=== PATIENT | female | born 1985 ===

== ENCOUNTER 2017-03-18 21:45 | Observation (INO) | payer BC ==
[2017-03-18 22:54] VITALS: BMI 28.3
[2017-03-18 23:59] LABS: BASO # 0.01 K/mm3 (0.0-2.0); BASO % 0.1 % (0.0-3.0); EOS # 0.1 (0.0-0.7); EOS % 0.5 % (1.5-5.0); GRAN # 6.89 (1.4-6.5); GRAN % 71.7 % (50.0-68.0); HEMATOCRIT 34.7 % (36.0-48.0); LYMPH # 2.1 (1.2-3.4); LYMPH % 21.3 % (22.0-35.0); MEAN CELL VOLUME 86.3 fl (80.0-105.0); MEAN CORPUSCULAR HEMOGLOBIN 28.9 pg (25.0-35.0); MEAN CORPUSCULAR HGB CONC 33.4 g/dl (31.0-37.0); MEAN PLATELET VOLUME 8.2 fl (7.0-11.0); MONO # 0.6 (0.1-0.6); MONO % 6.4 % (1.0-6.0); RED CELL DISTRIBUTION WIDTH 12.6 % (11.5-14.5); WHITE BLOOD COUNT 9.6 10^3/ul (4.5-11.0)
--- NOTE | 2017-03-19 00:15 | ED PDOC ---
Arrival/HPI <Anton Noble - Last Filed: 03/19/17 03:08> - General Historian: Patient, Spouse EM Caveat: Acuity of Condition - History of Present Illness Front/Back of Body, Lg (Color): 1 - right upper quadrant abdominal pain 2 - radiation of pain to RLQ Time/Duration: Other (3 days) Symptom Onset: Gradual Symptom Course: Unchanged Quality: Fullness, Other (sharp) Severity Level: 7 Activities at Onset: Light Context: Standing <CHANDRA PETTIT - Last Filed: 03/19/17 03:27> - General Chief Complaint: Abdominal Pain Time Seen by Provider: 03/18/17 21:47 - History of Present Illness Narrative History of Present Illness (Text): 32 years old female with hx of constipation, frequent UTIs, presents for RUQ abdominal pain x past 3 days. Pt states that it started while she was walking, describes it as sharp, intermittent, lasting few secs, occurs every few hours. Pt states that the pain radiates to the right lower abdominal quadrant and right pelvic area. Coughing, straightening up, deep breathing exacerbates the pain. Nothing makes it better. OTC gas relief medication and naproxen helped minimally. Pt states that she initially thought that it was just gas, pt has been passing excessive flatus and had nonbloody BM this AM. Pt denies nausea, vomiting, fever, chills, cough, sob, cp, palpitations, back pain, not associated with eating, urinary symptoms, melena, brbpr. 03/19/17 00:16 03/19/17 00:23 (CHANDRA PETTIT) Associated Symptoms (Text): Associated with excessive flatus. 03/19/17 00:26 (CHANDRA PETTIT) Past Medical History - Provider Review Nursing Documentation Reviewed: Yes - Infectious Disease Hx of Infectious Diseases: None - Genitourinary/Gynecological Other/Comment: Jarad breast cyst - Psychiatric Hx Substance Use: No - Surgical History Other/Comment: lumpectomy - Anesthesia Hx Anesthesia: Yes Hx Anesthesia Reactions: No Hx Malignant Hyperthermia: No <CHANDRA PETTIT - Last Filed: 03/19/17 03:27> Family/Social History - Physician Review Nursing Documentation Reviewed: Yes Family/Social History: Diabetes (Father), Hypertension (Father) Smoking Status: Never Smoked Hx Alcohol Use: No Hx Substance Use: No <CHANDRA PETTIT - Last Filed: 03/19/17 03:27> Allergies/Home Meds <Anton Noble - Last Filed: 03/19/17 03:08> <CHANDRA PETTIT - Last Filed: 03/19/17 03:27> Allergies/Adverse Reactions: Allergies shellfish derived Allergy (Verified 03/18/17 22:54) RASH Home Medications: Home Meds Medication Instructions Recorded Confirmed No Known Home Med 03/18/17 03/18/17 Review of Systems - Physician Review All systems were reviewed & negative as marked: Yes - Review of Systems Constitutional: absent: Fatigue, Fevers Eyes: absent: Vision Changes ENT: absent: Tinnitus, Sore Throat Respiratory: absent: SOB, Cough Cardiovascular: absent: Chest Pain, Palpitations, Syncope Gastrointestinal: Abdominal Pain, Constipation. absent: Stool Changes, Diarrhea , Nausea, Vomiting, Appetite Changes, Hematochezia, Hematemesis, Food Intolerance Genitourinary Female: Frequency. absent: Dysuria, Hematuria Musculoskeletal: absent: Back Pain Skin: absent: Rash, Skin Lesions Neurological: absent: Headache, Focal Weakness Psychiatric: Anxiety <CHANDRA PETTIT - Last Filed: 03/19/17 03:27> Physical Exam Vital Signs Reviewed: Yes Temperature: Afebrile Blood Pressure: Normal Pulse: Tachycardic Respiratory Rate: Normal Appearance: Positive for: Uncomfortable Pain Distress: Mild Mental Status: Positive for: Alert and Oriented X 3 - Systems Exam Head: Present: Atraumatic, Normocephalic Pupils: Present: PERRL Extroacular Muscles: Present: EOMI Conjunctiva: Present: Normal Mouth: Present: Moist Mucous Membranes. No: Dry Pharnyx: Present: Normal. No: ERYTHEMA Neck: Present: Normal Range of Motion Respiratory/Chest: Present: Clear to Auscultation, Good Air Exchange Cardiovascular: Present: Normal S1, S2, Tachycardic. No: Murmurs Abdomen: Present: Tenderness, Normal Bowel Sounds. No: Rebound, Guarding Back: Present: Normal Inspection. No: CVA Tenderness, Paraspinal Tenderness Upper Extremity: Present: Normal Inspection. No: Edema Lower Extremity: Present: Normal Inspection, NORMAL PULSES. No: CALF TENDERNESS Neurological: Present: GCS=15 Skin: Present: Warm, Dry Psychiatric: Present: Alert, Oriented x 3 <CHANDRA PETTIT - Last Filed: 03/19/17 03:27> Vital Signs Temp Pulse Resp BP Pulse Ox 03/18/17 23:40 98.5 F 114 H 17 116/69 99 Medical Decision Making <Anton Noble - Last Filed: 03/19/17 03:08> - Transfer of Care Patient signed out to Dr:: Chioma Other: Admit to Med-Surg for Observation <CHANDRA PETTIT - Last Filed: 03/19/17 03:27> ED Course and Treatment: Patient Seen With Resident: In agreement with resident note which contains more details about the patient. Patient was seen and evaluated with resident. Came up with plan and treatment together. (Anton Noble) 03/19/17 00:33 32 years old female presents for right sided abdominal pain: - CBC, CMP, lipase, Abdominal US - CT abd with IV contrast - Reassess and disposition 03/19/17 03:[address] Pt signed out [address] Bedolla and the director biomedical engineering. (CHANDRA PETTIT) - Lab Interpretations Lab Results: 03/18/17 23:40 03/18/17 23:40 Lab Results 03/18/17 23:40: Lipase 57 03/18/17 23:40: Sodium 140, Potassium 3.9, Chloride 102, Carbon Dioxide 27, Anion Gap 15, BUN 11, Creatinine 0.9, Est GFR ( Amer) > 60, Est GFR (Non- Af Amer) > 60, Random Glucose 124 H, Calcium 9.5, Total Bilirubin 0.4, AST 27, ALT 58 H, Alkaline Phosphatase 79, Total Protein 8.1, Albumin 4.3, Globulin 3.7 , Albumin/Globulin Ratio 1.2 03/18/17 23:40: WBC 9.6, RBC 4.02, Hgb 11.6 L, Hct 34.7 L, MCV 86.3, MCH 28.9, MCHC 33.4, RDW 12.6, Plt Count 446, MPV 8.2, Gran % 71.7 H, Lymph % (Auto) 21.3 L, [place] % (Auto) 6.4 H, Eos % (Auto) 0.5 L, Baso % (Auto) 0.1, Gran # 6.89 H, Lymph # 2.1, [place] # 0.6, Eos # 0.1, Baso # 0.01 03/18/17 23:30: Urine Color Yellow, Urine Appearance Sl cloudy, Urine pH 6.0, Ur Specific [place] 1.020, Urine Protein Negative, Urine Glucose (UA) Negative, Urine Ketones Negative, Urine Blood Trace-intact H, Urine Nitrate Negative, Urine Bilirubin Negative, Urine Urobilinogen 0.2, Ur Leukocyte Esterase Moderate H, Urine RBC 0 - 2, Urine WBC 5 - 10, Ur Epithelial Cells 1 - 3, Urine Bacteria Trace, Urine HCG, Qual Negative - RAD Interpretation Narrative RAD Interpretations (Text): 03/19/17 01:07 Abd US: Hepatomegaly. Limited evaluation of the pancreas, secondary to overlying bowel gas. No cholecystitis. 03/19/17 01:59 CT abd/pelvis with IV contrast: Contracted gallbladder with mild gallbladder wall prominence and pericholecystic haziness. Distended urinary bladder measuring 10.6 cm. There is nonspecific stool-like appearance to be small bowel loops with some fluid-filled bowel loops. There is infiltration of the mesentery of the lower abdomen. Correlation with clinical data is recommended if enteritis versus ileus with slow transit is clinically suspected. (CHANDRA PETTIT) Radiology Orders: 03/18/17 23:37 ABDOMEN COMPLETE [US] Stat 03/18/17 23:43 ABDOMEN & PELVIS [ABD & PELVIS IV CONTRAST ONLY] [CT] Stat - Medication Orders Current Medication Orders: Metronidazole (Flagyl) 500 mg in 100 mls @ 100 mls/hr IVPB Q8 IRENE PRN Reason: Protocol Sodium Chloride (Sodium Chloride 0.9%) 1,000 mls @ 125 mls/hr IV .Q8H IRENE Morphine Sulfate (Morphine) 2 mg IVP Q6 PRN PRN Reason: Pain, severe (8-10) Nitrofurantoin Macrocrystals (Macrobid) 100 mg PO Q12 IRENE Ondansetron HCl (Zofran Inj) 4 mg IVP Q6 PRN PRN Reason: Nausea/Vomiting Pantoprazole Sodium (Protonix Inj) 40 mg IVP DAILY IRENE Discontinued Medications Metronidazole (Flagyl) 500 mg in 100 mls @ 100 mls/hr IVPB STAT STA PRN Reason: Protocol Stop: 03/19/17 03:15 Last Admin: 03/19/17 02:35 Dose: 100 mls/hr Ceftriaxone Sodium (Rocephin 1 Gram Ivpb) 1 gm in 100 mls @ 200 mls/hr IVPB STAT STA PRN Reason: Protocol Stop: 03/19/17 02:44 - PA / [employer]IST MANAGER / Resident Statement / has reviewed & agrees with the documentation as recorded. / has examined the patient and agrees with the treatment plan. <Anton Noble - Last Filed: 03/19/17 03:08> Disposition/Present on Arrival <Anton Noble - Last Filed: 03/19/17 03:08> - Present on Arrival Any Indicators Present on Arrival: No History of DVT/PE: No History of Uncontrolled Diabetes: No Urinary Catheter: No History of Decub. Ulcer: No History Surgical Site Infection Following: None - Disposition Have Diagnosis and Disposition been Completed?: Yes Disposition Time: 02:20 Patient Plan: Admission, Observation, Other (Med-Surg) <CHANDRA PETTIT - Last Filed: 03/19/17 03:27> - Disposition Diagnosis: Abdominal pain Disposition: HOSPITALIZED Patient Problems: Current Active Problems Problem Status Onset Abdominal pain Acute Condition: FAIR Referrals: PCP,NO [Primary Care Provider] - Follow up with primary Forms: [employer] ([place])
[2017-03-19 00:16] LABS: ALB/GLOB RATIO 1.2 (1.1-1.8); ALKALINE PHOSPHATASE 79 U/L (38-126); ALT/SGPT 58 U/L (7-56); AST/SGOT 27 U/L (14-36); BILIRUBIN,TOTAL 0.4 mg/dL (0.2-1.3); BLOOD UREA NITROGEN 11 mg/dL (7-21); CALCIUM 9.5 mg/dL (8.4-10.5); CARBON DIOXIDE 27 mmol/L (21-33); CHLORIDE 102 mmol/L (95-110); GFR AFRICAN-AMERICAN > 60; GLUCOSE,RANDOM 124 mg/dL (70-110); POTASSIUM 3.9 mmol/L (3.6-5.0); SODIUM 140 mmol/L (132-148); TOTAL PROTEIN 8.1 g/dL (5.8-8.3)
[2017-03-19 00:28] LABS: URINE BILIRUBIN NEGATIVE (NEGATIVE); URINE BLOOD TRACE-INTACT (NEGATIVE); URINE GLUCOSE (UA) NEGATIVE (NEGATIVE); URINE KETONE NEGATIVE (NEGATIVE); URINE LEUKOCYTE ESTERASE MODERATE Leu/uL (NEGATIVE); URINE PROTEIN NEGATIVE mg/dL (<30 mg/dL); URINE UROBILINOGEN 0.2 E.U./dL (<1 E.U./dL)
[2017-03-19 00:34] LABS: URINE APPEARANCE SL CLOUDY (CLEAR); URINE COLOR YELLOW (YELLOW)
[2017-03-19 00:43] LABS: URINE BACTERIA TRACE (NEG); URINE RBC 0 - 2 /hpf (0-2)
--- NOTE | 2017-03-19 01:05 | US ---
EXAM: US Abdomen Complete CLINICAL HISTORY: 32 years old, female; Pain; Abdominal pain; Generalized; Additional info: Ruq pain; R/O gallbladder etiology TECHNIQUE: Real-time ultrasound of the abdomen (complete) with image documentation. COMPARISON: No relevant prior studies available. FINDINGS: Liver: Increased in echogenicity and size measuring 19 cm in longitudinal dimension. No intrahepatic bile duct dilation. Gallbladder: No acute findings. No gallstones. Common bile duct: No stones. No dilation, measuring 4.3 mm. Pancreas: Visualization of the pancreas is limited by overlying bowel gas. Right kidney: Unremarkable in echogenicity and size measuring 11.5 x 4.7 x 4.7 cm. No hydronephrosis. Left Kidney: Unremarkable in echogenicity and size measuring 11 x 5.8 x 5.2 cm. No hydronephrosis. Spleen: Unremarkable in echogenicity and size, measuring 7 cm in greatest dimension. Aorta: Unremarkable. Inferior vena cava: patent. IMPRESSION: Hepatomegaly. Limited evaluation of the pancreas, secondary to overlying bowel gas. Otherwise, unremarkable sonographic evaluation of the abdomen, as detailed above.
[2017-03-19] MEDS ORDERED: Iohexol 350 MG/100 ML VIAL ONE (01:12)
--- NOTE | 2017-03-19 01:50 | CT ---
EXAM: CT Abdomen and Pelvis With Intravenous Contrast CLINICAL HISTORY: 32 years old, female; Pain; Abdominal pain; Flank; Right lower quadrant (rlq); Additional info: Rlq/pelvic pain; Rule out appendicitis TECHNIQUE: Axial computed tomography images of the abdomen and pelvis with intravenous contrast. All CT scans at this facility use one or more dose reduction techniques, viz.: automated exposure control; ma/kV adjustment per patient size (including targeted exams where dose is matched to indication; i.e. head); or iterative reconstruction technique. 773 m are submitted. Coronal and sagittal reformatted images were created and reviewed. CONTRAST: 96 mL of OMNI 350 administered intravenously. COMPARISON: US - ABDOMEN COMPLETE 2017-03-19 00:49 FINDINGS: Lower thorax: Bibasilar nonspecific infiltrates are present, consistent with atelectasis or pneumonia. ABDOMEN: Liver: Mild fatty infiltration of the liver. Gallbladder and bile ducts: Contracted gallbladder with mild gallbladder wall prominence and pericholecystic haziness. Pancreas: Unremarkable. No mass. No ductal dilation. Spleen: Unremarkable. No splenomegaly. Adrenals: Unremarkable. No mass. Kidneys and ureters: Unremarkable. No solid mass. No hydronephrosis. Stomach and bowel: There is nonspecific stool-like appearance to be small bowel loops with some fluid-filled bowel loops. There is infiltration of the mesentery of the lower abdomen. Correlation with clinical data is recommended if enteritis versus ileus with slow transit is clinically suspected. No obstruction. Appendix: Normal appendix. PELVIS: Bladder: Distended bladder measuring 10.6 cm Reproductive: Bilateral ovarian follicles. High riding ovaries. Uterus is seen. ABDOMEN and PELVIS: Intraperitoneal space: Unremarkable. No free air. No significant fluid collection. Bones/joints: No acute fracture. No dislocation. Soft tissues: There is a fat-containing umbilical hernia. Vasculature: Pelvic phleboliths. No abdominal aortic aneurysm. Lymph nodes: Subcentimeter mesenteric lymph nodes. Tiny subcentimeter para-aortic lymph nodes. IMPRESSION: 1. Contracted gallbladder with mild gallbladder wall prominence and pericholecystic haziness. 2. Distended bladder measuring 10.6 cm . 3. There is nonspecific stool-like appearance to be small bowel loops with some fluid-filled bowel loops. There is infiltration of the mesentery of the lower abdomen. Correlation with clinical data is recommended if enteritis versus ileus with slow transit is clinically suspected.
[2017-03-19] MEDS ORDERED: cefTRIAXone 1 gm 1 GM/100 ML BAG IVPB STA (02:15)
[2017-03-19] MEDS ORDERED: metroNIDAZOLE IV 500 mg/100 ml 500 MG/100 ML BAG IVPB STA (02:16)
[2017-03-19] MEDS ORDERED: Morphine 2 mg/ml ISec IVP PRN (02:50)
[2017-03-19] MEDS ORDERED: Sodium Chloride 0.9% 1,000 ML IV SCH (03:00)
--- NOTE | 2017-03-19 03:09 | CP.PCM.HP ---
<Ermias Martin - Last Filed: 03/19/17 03:13> History of Present Illness - History of Present Illness History of Present Illness: This is a 32 year old female with no past medical history who comes in complaining of right upper quadrant pain since Friday. The patient describes the pain as sharp in nature and that it comes and goes. The patient reports taking a gas pill but denies any relief in the pain. The patient denies any allieviating or modifying symptoms. The patient does report some constipation in conjunction with the right upper quadrant pain. The patient denies any chest pain, shortness of breath, nausea, vomiting, constipation, diarrhea, changes in vision, lightheadedness, or dizziness, or any other complaints. PMD: Dr. Roy Past medical history: Denies Medications: Multivitamins Allergies: Shellfish Surgeries: Bilateral lumpectomy Social history: Denies alcohol or smoking history. Denies illicit drug use. Present on Admission - Present on Admission Any Indicators Present on Admission: No Review of Systems - Constitutional Constitutional: absent: Anorexia, Chills, Headache, Night Sweats, Snoring - EENT Eyes: absent: Blurred Vision, Discharge, Requires Corrective Lenses, Other Visual Disturbances Ears: absent: Ear Discharge, Disequilibrium, Dizziness Nose/Mouth/Throat: absent: Nasal Congestion, Nasal Trauma, Bleeding Gums, Halitosis - Cardiovascular Cardiovascular: absent: Chest Pain, Edema, Irregular Heart Rhythm, Orthopnea, Palpitations, Paroxysmal Nocturnal Dyspnea - Respiratory Respiratory: absent: Cough, Dyspnea, Hemoptysis, Snoring, Stridor, Pain on Inspiration - Gastrointestinal Gastrointestinal: Abdominal Pain, Constipation. absent: Change in Stool Character, Diarrhea, Dyspepsia, Dysphagia, Excessive Flatus, Heartburn, Melena, Nausea, Vomiting - Musculoskeletal Musculoskeletal: absent: Arthralgias, Myalgias, Neck Pain, Stiffness, Tingling - Integumentary Integumentary: absent: Alopecia, Lesions, Pruritus, Rash, Skin Pain, Swelling, Unusual Bruising - Neurological Neurological: absent: Abnormal Gait, Disequilibrium, Dizziness, Headaches, Loss of Vision, Radicular Pain, Syncope, Tremor, Vertigo, Weakness - Psychiatric Psychiatric: absent: Abnormal Sleep Pattern, Confusion, Depression, Hopelessness , Panic Attacks, Tactile Hallucinations - Endocrine Endocrine: absent: Change in Body Appearance, Excessive Sweating, Polydipsia, Polyphagia, Polyuria - Hematologic/Lymphatic Hematologic: absent: Easy Bleeding, Easy Bruising Past Patient History - Infectious Disease Hx of Infectious Diseases: None - Past Social History Smoking Status: Never Smoked - GENITOURINARY/GYNECOLOGICAL Other/Comment: Jarad breast cyst - PSYCHIATRIC Hx Substance Use: No - SURGICAL HISTORY Other/Comment: lumpectomy - ANESTHESIA Hx Anesthesia: Yes Hx Anesthesia Reactions: No Hx Malignant Hyperthermia: No Meds Allergies/Adverse Reactions: Allergies Allergy/AdvReac Type Severity Reaction Status Date / Time shellfish derived Allergy RASH Verified 03/18/17 22:54 Physical Exam - Head Exam Head Exam: ATRAUMATIC, NORMAL INSPECTION, NORMOCEPHALIC - Eye Exam Eye Exam: EOMI, Normal appearance, PERRL. absent: Periorbital tenderness Pupil Exam: NORMAL ACCOMODATION, PERRL. absent: Irregular, Unequal - ENT Exam ENT Exam: Mucous Membranes Moist, Normal Exam, Normal Oropharynx. absent: TM's Normal Bilaterally - Neck Exam Neck exam: Positive for: Normal Inspection. Negative for: Lymphadenopathy, Meningismus, Thyromegaly - Respiratory Exam Respiratory Exam: Clear to Auscultation Bilateral, NORMAL BREATHING PATTERN. absent: Chest Wall Tenderness, Prolonged Expiratory Phase, Respiratory Distress - Cardiovascular Exam Cardiovascular Exam: REGULAR RHYTHM, +S1, +S2. absent: Gallop, Rubs - GI/Abdominal Exam GI & Abdominal Exam: Normal Bowel Sounds, Soft, Tenderness. absent: Firm, Guarding, Hypoactive Bowel Sounds, Organomegaly - Extremities Exam Extremities exam: Positive for: full ROM, normal inspection. Negative for: joint swelling, pedal edema, tenderness - Back Exam Back exam: NORMAL INSPECTION. absent: CVA tenderness (L), CVA tenderness (R), paraspinal tenderness - Neurological Exam Neurological exam: CN II-XII Intact, Oriented x3 - Psychiatric Exam Psychiatric exam: Normal Affect, Normal Mood - Skin Skin Exam: Dry, Intact, Normal Color, Warm Results - Vital Signs Recent Vital Signs: Last Vital Signs Temp 98.5 F 03/18/17 23:40 Pulse 114 H 03/18/17 23:40 Resp 17 03/18/17 23:40 BP 116/69 03/18/17 23:40 Pulse Ox 99 03/18/17 23:40 - Labs Result Diagrams: 03/18/17 23:40 03/18/17 23:40 Labs: Laboratory Results - last 24 hr 03/18/17 03/18/17 03/18/17 23:30 23:40 23:40 WBC 9.6 RBC 4.02 Hgb 11.6 L Hct 34.7 L MCV 86.3 MCH 28.9 MCHC 33.4 RDW 12.6 Plt Count 446 MPV 8.2 Gran % 71.7 H Lymph % (Auto) 21.3 L [place] % (Auto) 6.4 H Eos % (Auto) 0.5 L Baso % (Auto) 0.1 Gran # 6.89 H Lymph # 2.1 [place] # 0.6 Eos # 0.1 Baso # 0.01 Sodium 140 Potassium 3.9 Chloride 102 Carbon Dioxide 27 Anion Gap 15 BUN 11 Creatinine 0.9 Est GFR ( Amer) > 60 Est GFR (Non-Af Amer) > 60 Random Glucose 124 H Calcium 9.5 Total Bilirubin 0.4 AST 27 ALT 58 H Alkaline Phosphatase 79 Total Protein 8.1 Albumin 4.3 Globulin 3.7 Albumin/Globulin Ratio 1.2 Lipase Urine Color Yellow Urine Appearance Sl cloudy Urine pH 6.0 Ur Specific [place] 1.020 Urine Protein Negative Urine Glucose (UA) Negative Urine Ketones Negative Urine Blood Trace-intact H Urine Nitrate Negative Urine Bilirubin Negative Urine Urobilinogen 0.2 Ur Leukocyte Esterase Moderate H Urine RBC 0 - 2 Urine WBC 5 - 10 Ur Epithelial Cells 1 - 3 Urine Bacteria Trace Urine HCG, Qual Negative 03/18/17 23:40 WBC RBC Hgb Hct MCV MCH MCHC RDW Plt Count MPV Gran % Lymph % (Auto) [place] % (Auto) Eos % (Auto) Baso % (Auto) Gran # Lymph # [place] # Eos # Baso # Sodium Potassium Chloride Carbon Dioxide Anion Gap BUN Creatinine Est GFR ( Amer) Est GFR (Non-Af Amer) Random Glucose Calcium Total Bilirubin AST ALT Alkaline Phosphatase Total Protein Albumin Globulin Albumin/Globulin Ratio Lipase 57 Urine Color Urine Appearance Urine pH Ur Specific [place] Urine Protein Urine Glucose (UA) Urine Ketones Urine Blood Urine Nitrate Urine Bilirubin Urine Urobilinogen Ur Leukocyte Esterase Urine RBC Urine WBC Ur Epithelial Cells Urine Bacteria Urine HCG, Qual Assessment & Plan - Assessment and Plan (Free Text) Assessment: This is a 32 year old female with no past medical history who is being admitted for right upper quadrant pain. Plan: 1.RUQ pain -Abdomen and pelvis ct done in the E.D. showed a contracted gallbladder with mild gallbaldder wall prominence and pericholecystic haziness, distended bladder 10.6cm, and non-specific stool like appearance to be small bowel loops with some fluid filled bowel loops -Surgery consulted. Will f/u with rec's. -GI consulted. Will f/u with rec's. -NPO -IV fluids at 125mls/hr -Morphine 2mg Q6 PRN for pain management 2. UTI -u/a shows moderated luekocyte esterase. Patient asymptomatic -Nitrofurantoin 100mg BID started -Will monitor closely. GI ppx -Protonix DVT ppx -SCD's <Butch Bedolla - Last Filed: 03/20/17 19:29> Results - Vital Signs Recent Vital Signs: Last Vital Signs Temp 98.2 F 03/19/17 16:00 Pulse 87 03/19/17 16:00 Resp 18 03/19/17 16:00 BP 100/61 03/19/17 16:00 Pulse Ox 100 03/19/17 16:00 - Labs Result Diagrams: 03/19/17 06:15 03/19/17 06:15 Attending/Attestation - Attestation I have personally seen and examined this patient.: Yes I have fully participated in the care of the patient.: Yes I have reviewed all pertinent clinical information: Yes Notes (Text): 03/20/17 19:28 Patient was seen when she was in the ER. Medical record was reviewed. Agree with history , physical examination, assessment and plan.
--- NOTE | 2017-03-19 04:03 | CP.PCM.CON ---
History of Present Illness - History of Present Illness History of Present Illness: General Surgery Consult Note for Dr. Ibarra Reason for Consult: RUQ Pain 32 F with no significant PMH presents to [facility] [place] for RUQ abdominal pain. She states that pain started on Friday around [facility] She reports that she ate breakfast earlier that morning but her pain is not associated with meals. She states that she never had this pain in the past. She rates the pain as moderate in severity. She describes the pain as intermittent and sharp located in RUQ without radiation. She denies any associated fever/chills, nausea/ vomiting. Patient reports taking a gas pill but denies any relief. Denies any exacerbating or alleviating symptoms. Admits to occasional constipation. Denies any anorexia, chest pain, shortness of breath, diarrhea. PMD: Dr. Carolina Past medical history: Denies Medications: Multivitamin Allergy: Shellfish Past Surgical history: Bilateral lumpectomy FH: DM, HTN Social: Denies alcoholsmoking history, or illicit drug use. Review of Systems - Review of Systems All systems: reviewed and no additional remarkable complaints except (RUQ pain) Past Patient History - Infectious Disease Hx of Infectious Diseases: None - Past Social History Smoking Status: Never Smoked - GENITOURINARY/GYNECOLOGICAL Other/Comment: Jarad breast cyst - PSYCHIATRIC Hx Substance Use: No - SURGICAL HISTORY Other/Comment: lumpectomy - ANESTHESIA Hx Anesthesia: Yes Hx Anesthesia Reactions: No Hx Malignant Hyperthermia: No Meds Allergies/Adverse Reactions: Allergies Allergy/AdvReac Type Severity Reaction Status Date / Time shellfish derived Allergy RASH Verified 03/18/17 22:54 - Medications Medications: Current Medications Metronidazole (Flagyl) 500 mg in 100 mls @ 100 mls/hr IVPB Q8 IRENE PRN Reason: Protocol Sodium Chloride (Sodium Chloride 0.9%) 1,000 mls @ 125 mls/hr IV .Q8H IRENE Morphine Sulfate (Morphine) 2 mg IVP Q6 PRN PRN Reason: Pain, severe (8-10) Nitrofurantoin Macrocrystals (Macrobid) 100 mg PO Q12 IRENE Ondansetron HCl (Zofran Inj) 4 mg IVP Q6 PRN PRN Reason: Nausea/Vomiting Pantoprazole Sodium (Protonix Inj) 40 mg IVP DAILY IRENE Physical Exam - Constitutional Appears: No Acute Distress - Head Exam Head Exam: ATRAUMATIC, NORMOCEPHALIC - Eye Exam Eye Exam: EOMI, Normal appearance Pupil Exam: PERRL - ENT Exam ENT Exam: Mucous Membranes Moist - Respiratory Exam Respiratory Exam: NORMAL BREATHING PATTERN - Cardiovascular Exam Cardiovascular Exam: REGULAR RHYTHM - GI/Abdominal Exam GI & Abdominal Exam: Soft. absent: Distended, Firm, Guarding, Hernia, Rebound, Rigid, Tenderness - Extremities Exam Extremities exam: Positive for: normal capillary refill, pedal pulses present - Back Exam Back exam: absent: CVA tenderness (L), CVA tenderness (R) - Neurological Exam Neurological exam: Alert, CN II-XII Intact, Oriented x3 - Psychiatric Exam Psychiatric exam: Normal Affect, Normal Mood - Skin Skin Exam: Dry, Intact, Normal Color, Warm Results - Vital Signs Recent Vital Signs: Last Vital Signs Temp 98.5 F 03/18/17 23:40 Pulse 114 H 03/18/17 23:40 Resp 17 03/18/17 23:40 BP 116/69 03/18/17 23:40 Pulse Ox 99 03/18/17 23:40 - Labs Result Diagrams: 03/18/17 23:40 03/18/17 23:40 Assessment & Plan - Assessment and Plan (Free Text) Plan: 32 F with RUQ abdominal pain -NPO -IV fluids -IV Antibiotics -Nitrofuratoin for UTI -f/u Hepatitis panel -f/u GI recommendations -Will discuss with Dr. Fred Tuttle PGY1
[2017-03-19 06:40] LABS: BASO # 0.02 K/mm3 (0.0-2.0); BASO % 0.2 % (0.0-3.0); EOS # 0.1 (0.0-0.7); EOS % 0.9 % (1.5-5.0); GRAN # 5.49 (1.4-6.5); GRAN % 67.8 % (50.0-68.0); HEMATOCRIT 34.6 % (36.0-48.0); LYMPH # 1.9 (1.2-3.4); LYMPH % 23.9 % (22.0-35.0); MEAN CELL VOLUME 86.7 fl (80.0-105.0); MEAN CORPUSCULAR HEMOGLOBIN 28.3 pg (25.0-35.0); MEAN CORPUSCULAR HGB CONC 32.7 g/dl (31.0-37.0); MEAN PLATELET VOLUME 8.4 fl (7.0-11.0); MONO # 0.6 (0.1-0.6); MONO % 7.2 % (1.0-6.0); RED CELL DISTRIBUTION WIDTH 12.6 % (11.5-14.5); WHITE BLOOD COUNT 8.1 10^3/ul (4.5-11.0)
[2017-03-19 07:21] LABS: ALB/GLOB RATIO 1.1 (1.1-1.8); ALKALINE PHOSPHATASE 76 U/L (38-126); ALT/SGPT 50 U/L (7-56); AST/SGOT 34 U/L (14-36); BILIRUBIN,TOTAL 0.4 mg/dL (0.2-1.3); BLOOD UREA NITROGEN 10 mg/dL (7-21); CARBON DIOXIDE 27 mmol/L (21-33); CHLORIDE 106 mmol/L (98-107); GFR AFRICAN-AMERICAN > 60; GLUCOSE,RANDOM 98 mg/dL (70-110); MAGNESIUM 2.2 mg/dL (1.7-2.2); PHOSPHOROUS 3.3 mg/dL (2.5-4.5); POTASSIUM 3.9 mmol/L (3.6-5.0); SODIUM 141 mmol/L (132-148); TOTAL PROTEIN 7.5 g/dL (5.8-8.3)
[2017-03-19] MEDS: metroNIDAZOLE IV 500 mg/100 ml 500 MG/100 ML BAG IVPB SCH ×2 (08:14→13:22)
[2017-03-19 16:30] VITALS: BP 100/61; PULSE 87; RESP 18; TEMP 98.2; O2SAT 100
--- NOTE | 2017-03-19 18:28 | CP.PCM.CON ---
<Levy Sanchez - Last Filed: 03/19/17 18:29> History of Present Illness - History of Present Illness History of Present Illness: PGY4 Initial GI Consult Reason for consult: Abd pain Rafia Medina is a 32 F with no significant PMH presents to [facility] [place] RUQ abdominal pain. She states that pain started on Friday while she was at [facility]. She cannot recall an inciting incident. She notes that her pain is in the RLQ and sharp. She denies any alleviating or aggravating factors. She reports that she ate breakfast earlier that morning but her pain is not associated with meals. She states that she never had this pain in the past. She states that she has a hx of constipation. She notes that her constipation has been chronic and for many years. She denies any daily bowel regiment. She denies any associated fever/chills, nausea/vomiting. Patient reports taking a gas pill but denies any relief. Denies any exacerbating or alleviating symptoms. Admits to occasional constipation. Denies any anorexia, chest pain, shortness of breath, diarrhea. PMD: Dr. Carolina Past medical history: Denies Past Surgical history: Bilateral lumpectomy FH: DM, HTN Social: Denies alcoholsmoking history, or illicit drug use. CT Abd w/o PO contrast: mod amount of stool in large intestine ROS: 12 point ROS conducted neg other than above Past Patient History - Infectious Disease Hx of Infectious Diseases: None - Past Social History Smoking Status: Never Smoked - MUSCULOSKELETAL/RHEUMATOLOGICAL Hx Falls: No - GENITOURINARY/GYNECOLOGICAL Other/Comment: Jarad breast cyst - PSYCHIATRIC Hx Substance Use: No - SURGICAL HISTORY Other/Comment: lumpectomy - ANESTHESIA Hx Anesthesia: Yes Hx Anesthesia Reactions: No Hx Malignant Hyperthermia: No Meds Allergies/Adverse Reactions: Allergies Allergy/AdvReac Type Severity Reaction Status Date / Time shellfish derived Allergy RASH Verified 03/18/17 22:54 - Medications Medications: Current Medications Metronidazole (Flagyl) 500 mg in 100 mls @ 100 mls/hr IVPB Q8 IRENE PRN Reason: Protocol Last Admin: 03/19/17 13:22 Dose: 100 mls/hr Sodium Chloride (Sodium Chloride 0.9%) 1,000 mls @ 125 mls/hr IV .Q8H IRENE Last Admin: 11/01/17 05:15 Dose: 125 mls/hr Morphine Sulfate (Morphine) 2 mg IVP Q6 PRN PRN Reason: Pain, severe (8-10) Nitrofurantoin Macrocrystals (Macrobid) 100 mg PO Q12 [facility] Last Admin: 03/19/17 10:11 Dose: 100 mg Ondansetron HCl (Zofran Inj) 4 mg IVP Q6 PRN PRN Reason: Nausea/Vomiting Pantoprazole Sodium (Protonix Inj) 40 mg IVP DAILY [facility] Last Admin: 03/19/17 10:12 Dose: 40 mg Physical Exam - Constitutional Appears: Well, Non-toxic, No Acute Distress - Head Exam Head Exam: ATRAUMATIC, NORMOCEPHALIC - Eye Exam Eye Exam: Normal appearance - ENT Exam ENT Exam: Mucous Membranes Moist - Neck Exam Neck exam: Positive for: Normal Inspection - Respiratory Exam Respiratory Exam: Clear to Auscultation Bilateral, NORMAL BREATHING PATTERN. absent: Rales, Rhonchi, Wheezes, Respiratory Distress - Cardiovascular Exam Cardiovascular Exam: REGULAR RHYTHM, +S1, +S2 - GI/Abdominal Exam GI & Abdominal Exam: Normal Bowel Sounds, Soft. absent: Distended, Firm, Guarding, Organomegaly - Extremities Exam Extremities exam: Negative for: joint swelling, pedal edema - Neurological Exam Neurological exam: Alert, Oriented x3 - Psychiatric Exam Psychiatric exam: Normal Affect, Normal Mood - Skin Skin Exam: Dry, Intact, Normal Color, Warm Results - Vital Signs Recent Vital Signs: Last Vital Signs Temp 98.2 F 03/19/17 16:00 Pulse 87 03/19/17 16:00 Resp 18 03/19/17 16:00 BP 100/61 03/19/17 16:00 Pulse Ox 100 03/19/17 16:00 - Labs Result Diagrams: 03/19/17 06:15 03/19/17 06:15 Labs: Laboratory Results - last 24 hr 03/19/17 03/19/17 03/19/17 05:00 06:15 06:15 WBC 8.1 RBC 3.99 Hgb 11.3 L Hct 34.6 L MCV 86.7 MCH 28.3 MCHC 32.7 RDW 12.6 Plt Count 427 MPV 8.4 Gran % 67.8 Lymph % (Auto) 23.9 Lamb % (Auto) 7.2 H Eos % (Auto) 0.9 L Baso % (Auto) 0.2 Gran # 5.49 Lymph # 1.9 Lamb # 0.6 Eos # 0.1 Baso # 0.02 Sodium 141 Potassium 3.9 Chloride 106 Carbon Dioxide 27 Anion Gap 12 BUN 10 Creatinine 0.6 L Est GFR ( Amer) > 60 Est GFR (Non-Af Amer) > 60 Random Glucose 98 Calcium 9.0 Phosphorus 3.3 Magnesium 2.2 Total Bilirubin 0.4 AST 34 ALT 50 Alkaline Phosphatase 76 Total Protein 7.5 Albumin 3.9 Globulin 3.5 Albumin/Globulin Ratio 1.1 Hepatitis A IgM Ab Negative Hep Bs Antigen Negative Hep B Core IgM Ab Negative Hepatitis C Antibody Negative Assessment & Plan - Assessment and Plan (Free Text) Assessment: Rafia Medina is a 32F w/ no sig hx who presented with RLQ pain. Etiology likely 2/2 constipation Constipation Abd pain likely 2/2 above Plan: -start miralax BID -start Senna at bedtime -advance diet as tolerated -antiemetics as needed -recommend daily miralax as oupt, can increase up to TID -continue PPI for now -recommend fiber suppliment -discussed proper bowel hygiene -f/u as an oupt D/W Dr. Elizabeth <Glenn YEE,[facility] - Last Filed: 03/19/17 20:01> Results - Vital Signs Recent Vital Signs: Last Vital Signs Temp 98.2 F 03/19/17 16:00 Pulse 87 03/19/17 16:00 Resp 18 03/19/17 16:00 BP 100/61 03/19/17 16:00 Pulse Ox 100 03/19/17 16:00 - Labs Result Diagrams: 03/19/17 06:15 03/19/17 06:15 Labs: Laboratory Results - last 24 hr 03/19/17 03/19/17 03/19/17 05:00 06:15 06:15 WBC 8.1 RBC 3.99 Hgb 11.3 L Hct 34.6 L MCV 86.7 MCH 28.3 MCHC 32.7 RDW 12.6 Plt Count 427 MPV 8.4 Gran % 67.8 Lymph % (Auto) 23.9 Lamb % (Auto) 7.2 H Eos % (Auto) 0.9 L Baso % (Auto) 0.2 Gran # 5.49 Lymph # 1.9 Lamb # 0.6 Eos # 0.1 Baso # 0.02 Sodium 141 Potassium 3.9 Chloride 106 Carbon Dioxide 27 Anion Gap 12 BUN 10 Creatinine 0.6 L Est GFR ( Amer) > 60 Est GFR (Non-Af Amer) > 60 Random Glucose 98 Calcium 9.0 Phosphorus 3.3 Magnesium 2.2 Total Bilirubin 0.4 AST 34 ALT 50 Alkaline Phosphatase 76 Total Protein 7.5 Albumin 3.9 Globulin 3.5 Albumin/Globulin Ratio 1.1 Hepatitis A IgM Ab Negative Hep Bs Antigen Negative Hep B Core IgM Ab Negative Hepatitis C Antibody Negative Attending/Attestation - Attestation I have personally seen and examined this patient.: Yes I have fully participated in the care of the patient.: Yes I have reviewed all pertinent clinical information: Yes Notes (Text): 03/19/17 19:56 Patient seen with GI fellow. This is a 32 yr old F w/ no sig hx who presented with RLQ pain likely secondary to constipation Strict bowel regimen with miralax and senna. No s/s of obstruction. Advance diet as tolerated. Add fiber to the regimen
[2017-03-19] MEDS ORDERED: POLYETHYLENE GLYCOL 3350 17 GM/Dose PACKET PO SCH (19:00)
--- NOTE | 2017-03-20 09:22 | CP.PCM.DIS ---
Provider - Provider Date of Admission: 03/19/17 03:07 Attending physician: Vitor Jauregui MD Primary care physician: NO PRIMARY CARE PROVIDER Consults: GI Time Spent in preparation of Discharge (in minutes): 70 Hospital Course - Lab Results Lab Results: Most Recent Lab Values WBC 8.1 10^3/ul (4.5-11.0) 03/19/17 06:15 RBC 3.99 10^6/uL (3.5-6.1) 03/19/17 06:15 Hgb 11.3 g/dL (12.0-16.0) L 03/19/17 06:15 Hct 34.6 % (36.0-48.0) L 03/19/17 06:15 MCV 86.7 fl (80.0-105.0) 03/19/17 06:15 MCH 28.3 pg (25.0-35.0) 03/19/17 06:15 MCHC 32.7 g/dl (31.0-37.0) 03/19/17 06:15 RDW 12.6 % (11.5-14.5) 03/19/17 06:15 Plt Count 427 10^3/uL (120.0-450.0) 03/19/17 06:15 MPV 8.4 fl (7.0-11.0) 03/19/17 06:15 Gran % 67.8 % (50.0-68.0) 03/19/17 06:15 Lymph % (Auto) 23.9 % (22.0-35.0) 03/19/17 06:15 Powell % (Auto) 7.2 % (1.0-6.0) H 03/19/17 06:15 Eos % (Auto) 0.9 % (1.5-5.0) L 03/19/17 06:15 Baso % (Auto) 0.2 % (0.0-3.0) 03/19/17 06:15 Gran # 5.49 (1.4-6.5) 03/19/17 06:15 Lymph # 1.9 (1.2-3.4) 03/19/17 06:15 Powell # 0.6 (0.1-0.6) 03/19/17 06:15 Eos # 0.1 (0.0-0.7) 03/19/17 06:15 Baso # 0.02 K/mm3 (0.0-2.0) 03/19/17 06:15 Sodium 141 mmol/L (132-148) 03/19/17 06:15 Potassium 3.9 mmol/L (3.6-5.0) 03/19/17 06:15 Chloride 106 mmol/L (98-107) 03/19/17 06:15 Carbon Dioxide 27 mmol/L (21-33) 03/19/17 06:15 Anion Gap 12 (10-20) 03/19/17 06:15 BUN 10 mg/dL (7-21) 03/19/17 06:15 Creatinine 0.6 mg/dL (0.7-1.2) L 03/19/17 06:15 Est GFR ( Amer) > 60 03/19/17 06:15 Est GFR (Non-Af Amer) > 60 03/19/17 06:15 Random Glucose 98 mg/dL (70-110) 03/19/17 06:15 Calcium 9.0 mg/dL (8.4-10.5) 03/19/17 06:15 Phosphorus 3.3 mg/dL (2.5-4.5) 03/19/17 06:15 Magnesium 2.2 mg/dL (1.7-2.2) 03/19/17 06:15 Total Bilirubin 0.4 mg/dL (0.2-1.3) 03/19/17 06:15 AST 34 U/L (14-36) 03/19/17 06:15 ALT 50 U/L (7-56) 03/19/17 06:15 Alkaline Phosphatase 76 U/L (38-126) 03/19/17 06:15 Total Protein 7.5 g/dL (5.8-8.3) 03/19/17 06:15 Albumin 3.9 g/dL (3.0-4.8) 03/19/17 06:15 Globulin 3.5 gm/dL 03/19/17 06:15 Albumin/Globulin Ratio 1.1 (1.1-1.8) 03/19/17 06:15 Lipase 57 U/L (23-300) 03/18/17 23:40 Urine Color Yellow (YELLOW) 03/18/17 23:30 Urine Appearance Sl cloudy (CLEAR) 03/18/17 23:30 Urine pH 6.0 (4.7-8.0) 03/18/17 23:30 Ur Specific [place] 1.020 (1.005-1.035) 03/18/17 23:30 Urine Protein Negative mg/dL (<30 mg/dL) 03/18/17 23:30 Urine Glucose (UA) Negative mg/dL (NEGATIVE) 03/18/17 23: Urine Ketones Negative mg/dL (NEGATIVE) 03/18/17 23:30 Urine Blood Trace-intact (NEGATIVE) H 03/18/17 23:30 Urine Nitrate Negative (NEGATIVE) 03/18/17 23:30 Urine Bilirubin Negative (NEGATIVE) 03/18/17 23:30 Urine Urobilinogen 0.2 E.U./dL (<1 E.U./dL) 03/18/17 23:30 Ur Leukocyte Esterase Moderate [place]/uL (NEGATIVE) H 03/18/17 23:30 Urine RBC 0 - 2 /hpf (0-2) 03/18/17 23:30 Urine WBC 5 - 10 /hpf (0-6) 03/18/17 23:30 Ur Epithelial Cells 1 - 3 /hpf (0-5) 03/18/17 23:30 Urine Bacteria Trace (NEG) 03/18/17 23:30 Urine HCG, Qual Negative (NEGATIVE) 03/18/17 23:30 Hepatitis A IgM Ab Negative (NEGATIVE) 03/19/17 05:00 Hep Bs Antigen Negative (NEGATIVE) 03/19/17 05:00 Hep B Core IgM Ab Negative (NEGATIVE) 03/19/17 05:00 Hepatitis C Antibody Negative (NEGATIVE) 03/19/17 05:00 Discharge Exam - Head Exam Head Exam: ATRAUMATIC, NORMOCEPHALIC Discharge Plan - Follow Up Plan Condition: FAIR Disposition: HOME/ ROUTINE Instructions: Pneumococcal Vaccine for Adults (GEN), Low Fat Diet (GEN), Influenza Vaccine (GEN), Cholesterol and Your Health (GEN), Acute Abdominal Pain (GEN) Additional Instructions: 1. Follow up with PMd in 3 days. 2. Follow up with GI Dr. Hensley. 3. Low fat, low cholesterol diet. Referrals: PCP,NO [Primary Care Provider] - Antonio Hensley MD [Staff Provider] -
== END 2017-03-19 18:49 | disposition home or self-care (01) ==
LOC: ED 21:45 → ERH 03-19 03:07 → 5RSO 03-19 05:03
PROVIDERS: ADMIT Internal Medicine; ATTEND Internal Medicine
DX: K59.00 Constipation, unspecified (principal); N39.0 Urinary tract infection, site not specified; R10.11 Right upper quadrant pain; R10.31 Right lower quadrant pain
CPT/HCPCS: 36415; 74177; 76700; 80053; 80074; 81001; 83690; 83735; 84100; 84703; 85025; 87086; 96361; 96365; 96366; 96367; 96375; 96376; 99285; C9113; G0378; J0696; J7040; Q9967